=== PATIENT | female | born 1935 | race Caucasian/White ===

== ENCOUNTER → 2016-09-17 | Outpatient (CLI) | payer OTHER, MEDICAID | LOC: BHCLAF 01:44 | PROVIDERS: ATTEND Internal Medicine Cardiovascular Disease | DX: I50.9 Heart failure, unspecified (principal) | CPT/HCPCS: 93306-PO ==

== ENCOUNTER 2016-11-01 14:23 | Inpatient (IN) | payer OTHER, MEDICAID ==
--- NOTE | 2016-11-01 15:01 | EDPHY ---
H & P Stated Complaint: cough, fall saturday night, L shoulder, L hip pain, gen weak HPI/ROS: HPI CHIEF COMPLAINT: Generalized weakness, cough, shortness of breath, recurrent falls, left shoulder pain, left hip pain, possible UTI HISTORY OF PRESENT ILLNESS: This patient very pleasant 81-year-old female, significant past medical history for interstitial lung disease on 5 L nasal cannula 24 hours day, presents to the emergency room with generalized weakness. According to the son at bedside on Saturday night /Saturday morning patient took a fall and was off of her oxygen her family found her on the ground, she was confused most of Saturday however this cleared on Saturday she had a really good day however she has been having a significant cough and wheezing worsening shortness of breath worsening generalized weakness and from her fall on Saturday she has left shoulder pain and left hip pain. Son brings her into the emergency room by private vehicle for generalized weakness and concern out of worsening cough and shortness of breath. Patient denies fever, chest pain, vomiting, diarrhea. Main complaint is cough, wheezing, left shoulder pain left hip pain from fall. Past Medical History:Interstitial lung disease on 5 LNasal cannula, AFib, E coli sepsis, chronic hypoxic respiratory failure Past Surgical History: No recent surgical history Social History: Denies daily use of drugs alcohol tobacco products does have a tobacco history Family History: noncontributory ROS REVIEW OF SYSTEMS: A comprehensive 10 point review of systems is otherwise negative aside from elements mentioned in the history of present illness. Exam Constitutional triage nursing summary reviewed, vital signs reviewed, awake/ alert. Eyes normal conjunctivae and sclera, EOMI, PERRLA. HENT normal inspection, atraumatic, moist mucus membranes, no epistaxis, neck supple/ no meningismus, no raccoon eyes. Respiratory decreased breath sounds bilaterally, crackles at bases worse right than left, expiratory wheezing present. Cardiovascular rate normal, regular rhythm, no murmur, no edema, distal pulses normal. Gastrointestinal soft, non-tender, no rebound, no guarding, normal bowel sounds, no distension, no pulsatile mass. Genitourinary no CVA tenderness. Musculoskeletal Left shoulder atraumatic, left hip atraumatic, full range of motion of left shoulder and left leg. no midline vertebral tenderness, full range of motion, no calf swelling, no tenderness of extremities, no meningismus , good pulses, neurovascularly intact. Skin pink, warm, & dry, no rash, skin atraumatic. Neurologic awake, alert and oriented x 3, AAOx3, moves all 4 extremities equally, motor intact, sensory intact, CN II-XII intact, normal cerebellar, normal vision, normal speech. Psychiatric normal mood/affect. Heme/Lymph/Immune no lymphadenopathy. Differential Diagnosis: Includes but is not limited to in a particular order, pneumonia, bronchitis, CHF, electrolyte abnormality, UTI, dehydration, failure to thrive, generalized weakness Medical Decision Making: plan for this patient had IV established be gently hydrated normal saline, check a two view chest x-ray for pneumonia, EKG, troponin, electrolytes check urinalysis will give DuoNeb breathing treatment. Re-evaluation: 1714: re-examination at this time patient received a DuoNeb breathing treatment. Still has wheezing. Still complaining of generalized weakness. Patient requesting be admitted to the hospital for ongoing shortness of breath, generalized weakness, decreased appetite. She does tell me that she has been taking clindamycin. She feels that the clindamycin may be causing nausea upset stomach decrease appetite generalized weakness. ED x-ray left shoulder negative for acute traumatic injury ED x-ray left hip negative for acute traumatic injury ED x-ray chest x-ray two view interstitial lung disease present. No focal pneumonia. 1715: due the patient having ongoing generalized weakness, shortness of breath with wheezing being clinically dehydrated not getting out of bed and for recurrent fall risk she is requesting be admitted to the hospital. EKG interpretation by me on record in [facility] system. Impression time of EKG 15 50, this is atrially paced rhythm there is a PVC present. 1721: spoke with Dr. Russell the hospitalist service who agrees to admit this patient. Reason for admission generalized weakness, shortness of breath, interstitial lung disease, failure to thrive. Source: Patient - Personal History Tetanus Vaccine Date: < 10 years - Medical/Surgical History Hx Asthma: No Hx Chronic Respiratory Disease: Yes Hx Diabetes: Yes Hx Cardiac Disease: Yes Hx Renal Disease: No Hx Cirrhosis: No Hx Alcoholism: No Hx HIV/AIDS: No Hx Splenectomy or Spleen Trauma: No Other PMH: BACK FUSION, L SHOULDER SURGERY, PACEMAKER-Slow rate, HTN, INTERSITIAL LUNG DISEASE,ANEMIA, GI BLEED Ecoli infections, chronic back pain, recurrent UTIs - Social History Smoking Status: Former smoker Constitutional: Initial Vital Signs Temperature (C) 36.8 C 11/01/16 14:32 Heart Rate 71 11/01/16 14:32 Respiratory Rate 18 11/01/16 14:32 Blood Pressure 141/70 H 11/01/16 14:32 O2 Sat (%) 94 11/01/16 14:32 O2 Delivery Mode Nasal Cannula O2 (L/minute) 4 Allergies/Adverse Reactions: iodine [Iodine] Allergy (Severe, Verified 03/20/16 20:26) Other-Enter Comments Penicillins Allergy (Severe, Verified 03/20/16 20:26) Hives Home Medications: Medication Instructions Recorded Allopurinol [Allopurinol 300 MG 300 mg PO DAILY 03/08/14 (RX)] Carvedilol [Coreg (*)] 6.25 mg PO DAILY 03/08/14 Furosemide [Lasix 40 MG (*)] 80 mg PO DAILY 03/08/14 Gemfibrozil [Lopid 600 MG (*)] 600 mg PO BIDMEAL 03/08/14 Montelukast Sodium [Singulair 10 10 mg PO DAILY 03/08/14 mg (*)] traMADol [Ultram 50 mg (*)] 100 mg PO HS 03/08/14 Levothyroxine [Synthroid 25 mcg 25 mcg PO DAILY06 03/14/15 (*)] Potassium Cl [Klor-Con 20 meq (*)] 20 meq PO DAILY 03/14/15 Methenamine Katie [Hiprex 1 gm (*)] 1 gm PO BID #60 tab 03/20/15 Ascorbic Acid [Vitamin C 500 mg 500 mg PO DAILY 09/30/15 (*)] Diazepam [Valium 2 MG (*)] 2 mg PO HS PRN 09/30/15 Esomeprazole Magnesium 40 mg PO DAILY 09/30/15 Sertraline HCl [Zoloft 50mg (*)] 100 mg PO DAILY 09/30/15 oxyCODONE HCL/ACETAMINOPHEN 0.5 - 1 tab PO HS PRN 09/30/15 [Percocet 10-325 mg Tablet] Acetaminophen [Tylenol ES 500 mg 1,000 mg PO DAILY 03/21/16 (*)] Albuterol Hfa Anes Only [Proair 2 puffs IH DAILY PRN 03/21/16 Hfa Icu (*)] Cholecalciferol Vit D3 [Vitamin D3 1,000 units PO DAILY 03/21/16 (*)] Ferrous Sulfate [Ferrous Sulf 325 325 mg PO DAILY 03/21/16 MG (*)] Herbals/Supplements -Info Only 1 ea PO DAILY 03/21/16 Nintedanib Esylate [Ofev] 150 mg PO BID 03/21/16 guaiFENesin [Mucinex 600 MG (*)] 1,200 mg PO DAILY 03/21/16 levOFLOXACIN [Levaquin] 500 mg PO DAILY #7 tablet 03/23/16 Medical Decision Making - Data Points Laboratory Results: Laboratory Results 11/01/16 15:40 11/01/16 15:40 11/01/16 11/01/16 11/01/16 16:12 15:40 15:40 WBC RBC Hgb Hct MCV MCH MCHC RDW Plt Count MPV Neut % (Auto) Lymph % (Auto) Stone % (Auto) Eos % (Auto) Baso % (Auto) Nucleat RBC Rel Count Absolute Neuts (auto) Absolute Lymphs (auto) Absolute Monos (auto) Absolute Eos (auto) Absolute Basos (auto) Absolute Nucleated RBC Immature Gran % Immature Gran # PT 17.1 SEC H SEC (12.0-15.0) INR 1.40 H (0.83-1.16) APTT 40.5 SEC H SEC (23.0-38.0) Sodium 141 mEq/L mEq/L (134-144) Potassium 3.7 mEq/L mEq/L (3.5-5.2) Chloride 98 mEq/L mEq/L (97-110) Carbon Dioxide 30 mEq/l mEq/l (22-31) Anion Gap 13 mEq/L mEq/L (8-16) BUN 17 mg/dL mg/dL (7-23) Creatinine 0.8 mg/dL mg/dL (0.6-1.0) Estimated GFR > 60 Glucose 94 mg/dL mg/dL (70-100) Calcium 9.4 mg/dL mg/dL (8.5-10.4) Troponin I 0.012 ng/mL ng/mL (0-0.034) NT-Pro-B Natriuret Pep 1730 pg/mL H pg/mL (0-450) Influenza Typ A,B (DFA) NEGATIVE FOR FLU (NEGATIVE) 11/01/16 15:40 WBC 12.12 10^3/uL H 10^3/uL (3.80-9.50) RBC 3.64 10^6/uL L 10^6/uL (4.18-5.33) Hgb 11.2 g/dL L g/dL (12.6-16.3) Hct 34.9 % L % (38.0-47.0) MCV 95.9 fL fL (81.5-99.8) MCH 30.8 pg pg (27.9-34.1) MCHC 32.1 g/dL L g/dL (32.4-36.7) RDW 14.0 % % (11.5-15.2) Plt Count 303 10^3/uL 10^3/uL (150-400) MPV 10.0 fL fL (8.7-11.7) Neut % (Auto) 83.1 % H % (39.3-74.2) Lymph % (Auto) 8.4 % L % (15.0-45.0) Stone % (Auto) 6.8 % % (4.5-13.0) Eos % (Auto) 0.6 % % (0.6-7.6) Baso % (Auto) 0.4 % % (0.3-1.7) Nucleat RBC Rel Count 0.0 % % (0.0-0.2) Absolute Neuts (auto) 10.07 10^3/uL H 10^3/uL (1.70-6.50) Absolute Lymphs (auto) 1.02 10^3/uL 10^3/uL (1.00-3.00) Absolute Monos (auto) 0.82 10^3/uL H 10^3/uL (0.30-0.80) Absolute Eos (auto) 0.07 10^3/uL 10^3/uL (0.03-0.40) Absolute Basos (auto) 0.05 10^3/uL 10^3/uL (0.02-0.10) Absolute Nucleated RBC 0.00 10^3/uL 10^3/uL (0-0.01) Immature Gran % 0.7 % % (0.0-1.1) Immature Gran # 0.09 10^3/uL 10^3/uL (0.00-0.10) PT INR APTT Sodium Potassium Chloride Carbon Dioxide Anion Gap BUN Creatinine Estimated GFR Glucose Calcium Troponin I NT-Pro-B Natriuret Pep Influenza Typ A,B (DFA) Medications Given: Discontinued Medications Albuterol/Ipratropium (Duoneb) 3 ml IH EDNOW ONE Stop: 11/01/16 15:13 Last Admin: 11/01/16 15:30 Dose: 3 ml Sodium Chloride (Ns) 1,000 mls @ 0 mls/hr IV ONCE ONE PRN Reason: Wide Open Stop: 11/01/16 15:13 Last Admin: 11/01/16 16:18 Dose: 1,000 mls Departure - Departure Disposition: [facility] Inpatient Acute Clinical Impression: Generalized weakness, Shortness of breath Condition: Fair Referrals: Ronn Kahn MD [Primary Care Provider] - As per Instructions
[2016-11-01] MEDS ORDERED: NS 1,000 ML IV ONE (15:12)
[2016-11-01] MEDS ORDERED: IPRATROPIUM/ALBUTEROL 3 ML DEYVIAL IH ONE (15:12)
[2016-11-01 15:56] LABS: % IMMATURE GRANULYOCYTES 0.7 % (0.0-1.1); ABSOLUTE IMMATURE GRANULOCYTES 0.09 10^3/uL (0.00-0.10); ADD DIFF? NO; ADD MORPH? NO; ADD SCAN? NO; ATYPICAL LYMPHOCYTE FLAG 0 (0-99); FRAGMENT RBC FLAG 0 (0-99); HEMATOCRIT 34.9 % (38.0-47.0); HEMOGLOBIN 11.2 g/dL (12.6-16.3); LEFT SHIFT FLG 0 (0-99); LIPEMIA HEMOLYSIS FLAG 80 (0-99); MEAN CELL HEMOGLOBIN 30.8 pg (27.9-34.1); MEAN CELL HEMOGLOBIN CONCENTR. 32.1 g/dL (32.4-36.7); MEAN CELL VOLUME 95.9 fL (81.5-99.8); PLATELET CLUMPS FLAG 20 (0-99); PLATELET COUNT 303 10^3/uL (150-400); RED BLOOD CELL COUNT 3.64 10^6/uL (4.18-5.33)
--- NOTE | 2016-11-01 16:00 | CPEKG ---
Heart Rate: 78 RR Interval: 769 P-R Interval: 176 QRSD Interval: 76 QT Interval: 412 QTC Interval: 470 P Underwood: -33 QRS Underwood: -30 T Wave Underwood: 105 EKG Severity - ABNORMAL ECG - EKG Impression: ATRIAL-PACED COMPLEXES EKG Impression: PROBABLE INFERIOR INFARCT, OLD EKG Impression: ABNRM R PROG, CONSIDER ASMI OR LEAD PLACEMENT EKG Impression: LATERAL LEADS ARE ALSO INVOLVED Electronically Signed By: Roderick Ramírez 01-Nov-2016 21:17:30
[2016-11-01 16:09] LABS: ANION GAP 13 mEq/L (8-16); CALCIUM 9.4 mg/dL (8.5-10.4); CARBON DIOXIDE 30 mEq/l (22-31); CHLORIDE 98 mEq/L (97-110); CREATININE 0.8 mg/dL (0.6-1.0); GLOMERULAR FILTRATION RATE > 60; GLUCOSE 94 mg/dL (70-100); INR 1.4 (0.83-1.16); POTASSIUM 3.7 mEq/L (3.5-5.2); PROTIME(PATIENT) 17.1 SEC (12.0-15.0); SODIUM 141 mEq/L (134-144)
[2016-11-01 16:10] LABS: APTT 40.5 SEC (23.0-38.0)
[2016-11-01 16:21] LABS: TROPONIN I 0.012 ng/mL (0-0.034)
[2016-11-01] MEDS ORDERED: methylPREDNISolone SOD SUCC 125 MG/2 ML VIAL IVP ONE (17:14)
[2016-11-01 17:59] LABS: COLOR YELLOW; LEUKOCYTE ESTERASE,URINE NEGATIVE (NEGATIVE); NITRITE,URINE NEGATIVE (NEGATIVE)
[2016-11-01 18:01] LABS: BACTERIA TRACE /hpf (NONE SEEN)
[2016-11-01] MEDS ORDERED: ACETAMINOPHEN 500 MG TAB PO ONE (19:19)
[2016-11-01] MEDS ORDERED: FUROSEMIDE 20 MG/2 ML VIAL IVP ONE (23:57)
[2016-11-02] MEDS ORDERED: ALBUTEROL 3 ML DEYVIAL IH PRN (00:01)
[2016-11-02] MEDS: APIXABAN 2.5 MG TAB PO SCH ×3 (00:38→20:46)
[2016-11-02] MEDS: CARVEDILOL 6.25 MG TAB PO SCH ×2 (00:39→08:39)
[2016-11-02] MEDS: METHENAMINE HIPP 1 GM TAB PO SCH ×3 (00:41→20:48)
[2016-11-02] MEDS: Nintedanib Esylate [Ofev] 150 MG PO SCH ×2 (01:06→16:03)
--- NOTE | 2016-11-02 01:06 | GHP ---
DATE OF ADMISSION: 11/01/2016 CHIEF COMPLAINT: Weakness and falls. HISTORY OF PRESENT ILLNESS: The patient is an 81-year-old female with a history of interstitial lung disease and chronic hypoxemic respiratory failure who wears 5 L of oxygen by nasal cannula at baseline. Presents to the emergency department reporting generalized weakness and falls. She was apparently found on the ground by her son five days prior to admission at which time her oxygen was off. Since then, she has complained of ongoing weakness, nausea, vomiting and difficulty tolerating oral intake. She states she has not taken her medications for several days. She has recently been suffering from upper respiratory symptoms. Reports sinus congestion in addition to her chronic cough and wheezing. She states she has been falling more frequently at home due to weakness. She denies fevers or chills. In the emergency department , she received a dose of ceftriaxone along with a L of normal saline. She is admitted to the hospital for further management. PAST MEDICAL HISTORY: 1. Chronic hypoxemic respiratory failure, on 5 L oxygen at baseline. 2. Interstitial lung disease. 3. Atrial fibrillation. 4. Chronic anticoagulation on Eliquis. 5. Chronic back pain. 6. Iron-deficiency anemia. 7. Chronic weakness. 8. Recurrent falls. 9. History of ESBL E coli UTIs. PAST SURGICAL HISTORY: Shoulder replacement, cholecystectomy, hysterectomy, lumbar fusion. MEDICATIONS: Please see [facility] for complete updated outpatient medication list. ALLERGIES: Include iodine and penicillin. SOCIAL HISTORY: The patient lives with her daughter. She denies alcohol, tobacco, or drug use. FAMILY HISTORY: Both parents are . REVIEW OF SYSTEMS: A 10-point review of systems was performed and is negative except as per HPI. OBJECTIVE: VITAL SIGNS: Temperature is 36.4, blood pressure 151/106, heart rate 71, respiratory rate 18, she is 90% on 4 L of oxygen. GENERAL: The patient is awake, alert, and oriented. In no acute distress. HEENT: Head is atraumatic, normocephalic. Pupils equal, round, and reactive to light. Extraocular muscles intact. Oropharynx clear. Mucous membranes are moist. NECK: Supple. There is no JVD. HEART: Regular rate and rhythm. LUNGS: Reveal bibasilar crackles. Otherwise, fair air exchange with some scattered faint expiratory wheezes. ABDOMEN: Soft, obese, nondistended, nontender with normoactive bowel tones. EXTREMITIES: Without cyanosis, clubbing, or edema. NEUROLOGIC: Grossly nonfocal. ASSESSMENT AND PLAN: The patient is an 81-year-old female with a history of chronic respiratory failure, interstitial lung disease, who is admitted to the hospital with recurrent falls and generalized weakness. 1. Chronic hypoxemic respiratory failure secondary to interstitial lung disease. She is currently on her baseline oxygen requirement. Will give her scheduled DuoNeb and p.r.n. albuterol nebs. I do not see a strong indication for steroids at this time. She does have bibasilar crackles and elevated BNP. Has not taken her Lasix in several days. I will give her some IV Lasix tonight will resume her oral Lasix tomorrow. Her chest x-ray does not show overt failure. 2. Recurrent falls associated with generalized weakness. This has been an ongoing problem for the patient, and she may ultimately require a higher level of care. I do not see an obvious source of infection contributing to these symptoms. Her urinalysis is relatively bland. There is no evidence of pneumonia on her chest x-ray. She has no focal abdominal tenderness. No signs of CLINICAL LABORATORY MANAGER infection. Her white count is slightly elevated, and she did receive IV ceftriaxone in the emergency department. Blood cultures and urine cultures are pending. She will need PT/OT evaluations to further determine her functional capacity, and consideration might be given to placement. 3. Atrial fibrillation. She is rate controlled on Coreg. Will continue this. Will also continue her Eliquis for stroke prevention. 4. Nausea and vomiting. She apparently denied this to the ER physician per his documentation and she just ate a bowl of ice cream prior to my arrival. However, she does report to me nausea and vomiting and difficulty tolerating p.o. She does not appear significantly volume depleted and has no electrolyte abnormalities. I will give her a PPI and continue monitoring. If these symptoms persist, could consider GI consult. 5. Chronic pain. I will continue her p.r.n. tramadol and oxycodone. These medications certainly could contribute to falls, though, according to her med rec, she takes just 1 oxycodone at bedtime as well as tramadol 100 mg at bedtime. I will reduce this dose to 50 mg to try to minimize potential side affects. DISPOSITION: Patient is admitted to inpatient status. She may require greater than 48 hours hospitalization for acute therapy and further management of her chronic respiratory failure and generalized weakness and falls. /[id number]/MODL MTDD
[2016-11-02] MEDS: OXYCODONE/APAP 5/325 TAB PO PRN ×3 (04:03→19:35)
[2016-11-02] MEDS: LEVOTHYROXINE 25 MCG TAB PO SCH (05:02)
[2016-11-02] MEDS: IPRATROPIUM/ALBUTEROL 3 ML DEYVIAL IH SCH ×4 (06:17→21:17)
[2016-11-02] MEDS: ALLOPURINOL 300 MG TAB PO SCH (08:35)
[2016-11-02] MEDS: GEMFIBROZIL 600 MG TAB PO SCH ×2 (08:35→19:35)
[2016-11-02] MEDS: FERROUS SULFATE 325 MG TAB PO SCH (08:35)
[2016-11-02] MEDS: POTASSIUM CL 20 MEQ TAB PO SCH (08:36)
[2016-11-02] MEDS: PANTOPRAZOLE SODIUM 40 MG TAB PO SCH (08:36)
[2016-11-02] MEDS: SERTRALINE HCL 100 MG TAB PO SCH (08:37)
[2016-11-02] MEDS: FUROSEMIDE 40 MG TAB PO SCH (08:39)
--- NOTE | 2016-11-02 15:48 | HOSPPROG ---
Hospitalist Progress Note Assessment/Plan: 81-year-old female presents emergency room complaints of weakness and falls. This is my 1st encounter with the patient, chart reviewed. Patient discussed with Dr. Nieto of Infectious Disease # weakness Etiology unclear Continue evaluation # nausea with decreased appetite Etiology unclear in Continue hydration Encourage oral intake # dehydration Continue IV fluids # chronic hypoxemic respiratory failure note On 5 L at baseline At baseline # # atrial fibrillation Appears rate controlled # chronic pain Continue home medications # questionable urinary tract infection Reviewed with Dr. Nieto infectious disease Patient requesting consultation Defer a any further antibiotic therapy to Dr. Nieto Urine culture pending # disposition Unclear given further need for evaluation hospital setting Reviewed with patient and the daughter Agree with this plan Continue supportive management and investigation into etiology of new complaint Subjective: Complains of having a headache. Feels tired and weak all over. Feels some pain generally all over. Decreased appetite. Objective: Vital Signs Temp Pulse Resp BP Pulse Ox 36.8 C 76 16 130/70 H 98 11/02/16 15:19 11/02/16 15:19 11/02/16 15:19 11/02/16 15:19 11/02/16 15:19 11/01/16 11/02/16 11/03/16 05:59 05:59 05:59 Intake Total 350 100 Output Total 800 Balance -450 100 PT 17.1 SEC (12.0-15.0) H 11/01/16 15:40 INR 1.40 (0.83-1.16) H 11/01/16 15:40 - Physical Exam Constitutional: appears nourished, chronically ill appearing, uncomfortable Eyes: PERRL, anicteric sclera, EOMI Ears, Nose, Mouth, Throat: moist mucous membranes, hearing normal, ears appear normal Cardiovascular: No JVD, No tachycardia, No edema Respiratory: no respiratory distress, no rales or rhonchi, reduced air movement Gastrointestinal: No tenderness, No ascites, No guarding Skin: warm, normal color, No erythema Musculoskeletal: no joint effusions, muscular tenderness, generalized weakness Neurologic: AAOx3 Psychiatric: not anxious, not encephalopathic, thought process linear ICD10 Worksheet Patient Problems: Problems Problem Status Onset GI hemorrhage Acute Urinary tract infection Acute Weakness Acute Generalized weakness Acute Shortness of breath Acute
--- NOTE | 2016-11-02 17:03 | PCMIDPN ---
Assessment/Plan: Assessment: Abnormal urinalysis-no clear indicator of urinary tract infection. No localizing symptoms. Would not treat for urinary source of infection. Plan: 1. No antibiotics. We will sign off. If you need follow-up please call again. Subjective: Patient is resting in her hospital bed. She is at baseline as far as cognition in behavior. Energy level also appears at baseline. No fevers or chills. Objective: No antibiotics Vital Signs Temp Pulse Resp BP Pulse Ox 36.8 C 76 16 130/70 H 98 11/02/16 15:19 11/02/16 15:19 11/02/16 15:19 11/02/16 15:19 11/02/16 15:19 11/01/16 11/02/16 11/03/16 05:59 05:59 05:59 Intake Total 350 100 Output Total 800 Balance -450 100 - Physical Exam General Appearance: WD/WN, alert, no apparent distress, non-toxic Skin: normal color, warm/dry, No rash Neuro/Psych: alert, normal mood/affect, oriented x 3 ICD10 Worksheet Patient Problems: Problems Problem Status Onset Generalized weakness Acute Shortness of breath Acute GI hemorrhage Acute Urinary tract infection Acute Weakness Acute
[2016-11-02] MEDS: traMADol 50 MG TAB PO SCH (20:47)
[2016-11-02] MEDS: MELATONIN 3 MG TAB PO SCH (20:48)
[2016-11-02] MEDS: NINTEDANIB ESYLATE 100 MG PO SCH (20:48)
[2016-11-02] MEDS ORDERED: traMADol 50 MG TAB PO SCH (21:00)
[2016-11-02] MEDS ORDERED: OXYCODONE/APAP 5/325 TAB PO SCH (21:00)
[2016-11-02] MEDS: BENZONATATE 100 MG CAP PO PRN (22:32)
[2016-11-02] MEDS: DOXYCYCLINE HYCLATE 100 MG CAP/TAB PO SCH (22:33)
[2016-11-03] MEDS: IPRATROPIUM/ALBUTEROL 3 ML DEYVIAL IH SCH ×4 (06:14→21:22)
[2016-11-03] MEDS: LEVOTHYROXINE 25 MCG TAB PO SCH (06:25)
[2016-11-03] MEDS: ACETAMINOPHEN 325 MG TAB PO PRN (07:03)
[2016-11-03] MEDS: SERTRALINE HCL 100 MG TAB PO SCH (08:17)
[2016-11-03] MEDS: APIXABAN 2.5 MG TAB PO SCH ×2 (08:17→21:23)
[2016-11-03] MEDS: ALLOPURINOL 300 MG TAB PO SCH (08:17)
[2016-11-03] MEDS: PANTOPRAZOLE SODIUM 40 MG TAB PO SCH (08:17)
[2016-11-03] MEDS: POTASSIUM CL 20 MEQ TAB PO SCH (08:17)
[2016-11-03] MEDS: FERROUS SULFATE 325 MG TAB PO SCH (08:18)
[2016-11-03] MEDS: CARVEDILOL 6.25 MG TAB PO SCH (08:18)
[2016-11-03] MEDS: FUROSEMIDE 40 MG TAB PO SCH (08:18)
[2016-11-03] MEDS: DOXYCYCLINE HYCLATE 100 MG CAP/TAB PO SCH ×2 (08:18→21:22)
[2016-11-03] MEDS: NINTEDANIB ESYLATE 100 MG PO SCH ×2 (08:20→21:25)
[2016-11-03] MEDS: METHENAMINE HIPP 1 GM TAB PO SCH ×2 (08:20→21:23)
[2016-11-03] MEDS: GEMFIBROZIL 600 MG TAB PO SCH ×2 (08:35→17:33)
--- NOTE | 2016-11-03 08:40 | HOSPPROG ---
Hospitalist Progress Note Assessment/Plan: Patient is an 81-year-old female with history of interstitial lung disease and chronic hypoxemic respiratory failure. She presented to the emergency room with generalized weakness and falls. Today is my 1st encounter with the patient. Chart reviewed. # weakness -PT recommending 24 hour care/ SNF? # Pyuria - likely is chronic colonization - appreciate Dr. Nieto involvement # nausea with decreased appetite no complaints fo this today # dehydration dc fluids #elevated BNP -patient on lasix 8o mg daily -will check an echo/ # chronic hypoxemic respiratory failure note/ ild I suspect this is impacting her health overall On 5 L at baseline is seen at [facility] # atrial fibrillation - anticoagulated on Eliquis # chronic pain Continue home medications # disposition: pending/ will likely go home in the a.m./ will first evaluate echo/ she is cared by her family/ recommended consideration of SNF for strengthening Subjective: Chikis describes as feeling full over abomen and chest wall area/ no chest pain. Objective: Vital Signs Temp Pulse Resp BP Pulse Ox 36.4 C 73 18 123/71 H 96 11/03/16 07:22 11/03/16 08:18 11/03/16 07:22 11/03/16 08:18 11/03/16 07:22 11/02/16 11/03/16 11/04/16 05:59 05:59 05:59 Intake Total 350 500 Output Total 800 350 Balance -450 150 PT 17.1 SEC (12.0-15.0) H 11/01/16 15:40 INR 1.40 (0.83-1.16) H 11/01/16 15:40 - Physical Exam Constitutional: not in pain, chronically ill appearing, obese Eyes: PERRL Ears, Nose, Mouth, Throat: hearing normal Cardiovascular: regular rate and rhythym Respiratory: no respiratory distress, other (crackles bibasilar) Gastrointestinal: other (large and round) Skin: warm Musculoskeletal: generalized weakness Neurologic: AAOx3 Psychiatric: interacting appropriately ICD10 Worksheet Patient Problems: Problems Problem Status Onset Generalized weakness Acute Shortness of breath Acute GI hemorrhage Acute Urinary tract infection Acute Weakness Acute
[2016-11-03] MEDS: OXYCODONE/APAP 5/325 TAB PO PRN (21:21)
[2016-11-03] MEDS: MELATONIN 3 MG TAB PO SCH (21:22)
[2016-11-03] MEDS: traMADol 50 MG TAB PO SCH (21:22)
[2016-11-03] MEDS: BENZONATATE 100 MG CAP PO PRN (21:22)
[2016-11-03] MEDS: DIAZEPAM 2 MG TAB PO PRN (21:23)
[2016-11-04] MEDS: LEVOTHYROXINE 25 MCG TAB PO SCH (06:03)
[2016-11-04] MEDS: ACETAMINOPHEN 325 MG TAB PO PRN ×2 (06:03→23:20)
[2016-11-04] MEDS: IPRATROPIUM/ALBUTEROL 3 ML DEYVIAL IH SCH ×4 (06:17→23:44)
[2016-11-04] MEDS: POTASSIUM CL 20 MEQ TAB PO SCH (09:27)
[2016-11-04] MEDS: METHENAMINE HIPP 1 GM TAB PO SCH ×2 (09:27→20:00)
[2016-11-04] MEDS: APIXABAN 2.5 MG TAB PO SCH ×2 (09:27→20:01)
[2016-11-04] MEDS: ALLOPURINOL 300 MG TAB PO SCH (09:27)
[2016-11-04] MEDS: GEMFIBROZIL 600 MG TAB PO SCH ×2 (09:27→18:36)
[2016-11-04] MEDS: PANTOPRAZOLE SODIUM 40 MG TAB PO SCH (09:28)
[2016-11-04] MEDS: DOXYCYCLINE HYCLATE 100 MG CAP/TAB PO SCH ×2 (09:28→20:01)
[2016-11-04] MEDS: SERTRALINE HCL 100 MG TAB PO SCH (09:28)
[2016-11-04] MEDS: FUROSEMIDE 40 MG TAB PO SCH (09:28)
[2016-11-04] MEDS: CARVEDILOL 6.25 MG TAB PO SCH (09:28)
[2016-11-04] MEDS: FERROUS SULFATE 325 MG TAB PO SCH (09:28)
[2016-11-04] MEDS: NINTEDANIB ESYLATE 100 MG PO SCH ×2 (09:29→20:01)
--- NOTE | 2016-11-04 12:16 | HOSPPROG ---
Hospitalist Progress Note Assessment/Plan: Patient is an 81-year-old female with history of interstitial lung disease and chronic hypoxemic respiratory failure. She presented to the emergency room with generalized weakness and falls. # weakness -PT recommending 24 hour care/ SNF? # Pyuria - likely is chronic colonization - appreciate Dr. Nieto involvement # nausea with decreased appetite -eating better # dehydration dc fluids #elevated BNP -patient on lasix 8o mg daily -will check an echo/pending # chronic hypoxemic respiratory failure note/ ild I suspect this is impacting her health overall On 4 L at baseline is seen at [facility] # atrial fibrillation - anticoagulated on Eliquis # chronic pain Continue home medications # disposition: pending/awaiting echo/check cbc in a.m. Subjective: Chikis is tired but feeling better today/ slept well, appetite is improving. Objective: Vital Signs Temp Pulse Resp BP Pulse Ox 36.4 C 72 16 137/69 H 93 11/04/16 08:00 11/04/16 11:13 11/04/16 11:13 11/04/16 09:28 11/04/16 11:13 Microbiology 11/01/16 18:02 Urine Culture - Final Urine,Clean Catch Two [place] Types Gram Negative Karl 11/03/16 11/04/16 11/05/16 05:59 05:59 05:59 Intake Total 500 200 Output Total 350 500 Balance 150 -300 PT 17.1 SEC (12.0-15.0) H 11/01/16 15:40 INR 1.40 (0.83-1.16) H 11/01/16 15:40 - Physical Exam Constitutional: not in pain, chronically ill appearing, obese Eyes: PERRL Ears, Nose, Mouth, Throat: hearing normal Cardiovascular: regular rate and rhythym Respiratory: no respiratory distress, other (rhonchi, rubbing type lung sounds) Skin: warm, normal color Musculoskeletal: full muscle strength, generalized weakness Neurologic: AAOx3 Psychiatric: interacting appropriately, not anxious ICD10 Worksheet Patient Problems: Problems Problem Status Onset Generalized weakness Acute Shortness of breath Acute GI hemorrhage Acute Urinary tract infection Acute Weakness Acute
[2016-11-04] MEDS: MELATONIN 3 MG TAB PO SCH (20:00)
[2016-11-04] MEDS: traMADol 50 MG TAB PO SCH (20:00)
[2016-11-04] MEDS: DIAZEPAM 2 MG TAB PO PRN (20:01)
[2016-11-05] MEDS: BENZONATATE 100 MG CAP PO PRN ×2 (05:32→13:23)
[2016-11-05] MEDS: LEVOTHYROXINE 25 MCG TAB PO SCH (05:32)
[2016-11-05] MEDS: IPRATROPIUM/ALBUTEROL 3 ML DEYVIAL IH SCH ×3 (05:34→16:25)
[2016-11-05 05:51] LABS: % IMMATURE GRANULYOCYTES 2.3 % (0.0-1.1); ABSOLUTE IMMATURE GRANULOCYTES 0.19 10^3/uL (0.00-0.10); ADD DIFF? NO; ADD MORPH? NO; ADD SCAN? NO; ATYPICAL LYMPHOCYTE FLAG 10 (0-99); FRAGMENT RBC FLAG 0 (0-99); HEMATOCRIT 32.1 % (38.0-47.0); HEMOGLOBIN 10.3 g/dL (12.6-16.3); LEFT SHIFT FLG 10 (0-99); LIPEMIA HEMOLYSIS FLAG 80 (0-99); MEAN CELL HEMOGLOBIN 30.4 pg (27.9-34.1); MEAN CELL HEMOGLOBIN CONCENTR. 32.1 g/dL (32.4-36.7); MEAN CELL VOLUME 94.7 fL (81.5-99.8); MEAN PLATELET VOLUME 10.5 fL (8.7-11.7); PLATELET CLUMPS FLAG 0 (0-99); PLATELET COUNT 290 10^3/uL (150-400); RED BLOOD CELL COUNT 3.39 10^6/uL (4.18-5.33); RED CELL DISTRIBUTION WIDTH 14.2 % (11.5-15.2)
[2016-11-05 08:26] VITALS: TEMP 98.2; O2SAT 92
[2016-11-05] MEDS: ACETAMINOPHEN 325 MG TAB PO PRN ×2 (09:31→13:26)
[2016-11-05] MEDS: CARVEDILOL 6.25 MG TAB PO SCH (09:31)
[2016-11-05] MEDS: ALLOPURINOL 300 MG TAB PO SCH (09:32)
[2016-11-05] MEDS: APIXABAN 2.5 MG TAB PO SCH (09:32)
[2016-11-05] MEDS: FUROSEMIDE 40 MG TAB PO SCH (09:32)
[2016-11-05] MEDS: GEMFIBROZIL 600 MG TAB PO SCH (09:32)
[2016-11-05] MEDS: FERROUS SULFATE 325 MG TAB PO SCH (09:32)
[2016-11-05] MEDS: METHENAMINE HIPP 1 GM TAB PO SCH (09:32)
[2016-11-05] MEDS: DOXYCYCLINE HYCLATE 100 MG CAP/TAB PO SCH (09:32)
[2016-11-05] MEDS: PANTOPRAZOLE SODIUM 40 MG TAB PO SCH (09:39)
[2016-11-05] MEDS: POTASSIUM CL 20 MEQ TAB PO SCH (09:39)
[2016-11-05] MEDS: SERTRALINE HCL 100 MG TAB PO SCH (09:39)
[2016-11-05] MEDS: NINTEDANIB ESYLATE 100 MG PO SCH (09:40)
--- NOTE | 2016-11-05 11:32 | ECHO ---
[id number] + + [address] : : [place] [address] : : [phone] + + Adult Echocardiographic Report + -----+ :Name: ANGELO NICOLE SStudy Date: 11/04/2016 03:31 PM : : Hospital Admission Number: [id number] Location : 354: :: 1935 Gender: Female Height: 61 in : :Age: 81 yrs Race: WH Weight: 180 lb : :Reason For Study: elevated BNP, increase SOB : : BSA: 1.8 meters2 : :History: No previous : + -----+ MMode/2D Measurements \T\ Calculations IVSd: 1.1 cm RVDd: 3.5 cm FS: 28.6 % LVOT diam: 1.7 cm LVPWd: 1.4 cm LVIDd: 4.2 cm EDV(Teich): LVOT area: LVIDs: 3.0 cm 78.1 ml 2.3 cm2 ESV(Teich): 34.8 ml EF(Teich): 55.4 % LVLd ap4: 7.2 cm SV(MOD-sp4): EDV(MOD-sp4): 36.0 ml 59.0 ml LVLs ap4: 5.9 cm ESV(MOD-sp4): 23.0 ml EF(MOD-sp4): 61.0 % Normal Measurement Values: + + :LVIDd (3.5-5.7cm) IVSd (0.6-1.1cm) LVPWd (0.6-1.1cm) Aortic Root (2.0-3.7cm)Left Atrium (1.5-4.0cm): :LV Vol(d) (76-115ml) LV Vol(s) (29-48ml) Ejec Fraction (50-65%)PV [place] (0.6- 1.2m/s) TV [place] (0.4-1.0m/s) : :MV E [place] (0.8-1.0m/s)MV A [place] (0.3-1.0m/s)LVOT [place] (0.7-1.2m/s) Asc Ao [place] ( 0.9-1.8m/s) : + + Doppler Measurements \T\ Calculations MV E max [place]: MV V2 max: Ao mean PG: LV V1 mean P.8 cm/sec 91.2 cm/sec 4.5 mmHg 0.94 mmHg MV A max day[place]: MV max PG: Ao V2 mean: LV V1 mean: 94.3 cm/sec 3.3 mmHg 101.3 cm/sec 45.9 cm/sec MV E/A: 0.59 MV V2 mean: Ao V2 VTI: 25.7 cm LV V1 VTI: 12.6 cm MV dec time: 54.7 cm/sec LIZ(I,D): 1.1 cm2 0.20 sec MV mean P.4 mmHg MV V2 VTI: 17.1 cm MVA(VTI): 1.7 cm2 SV(LVOT): 28.4 ml PA V2 max: TR max [place]: 89.6 cm/sec 311.3 cm/sec PA max PG: TR max P.2 mmHg 38.8 mmHg RAP systole: 10.0 mmHg RVSP(TR): 48.8 mmHg Left Ventricle The left ventricle is normal in size and function. There is normal left ventricular wall thickness. Ejection Fraction = 55-60%. There is Doppler evidence for diastolic dysfunction. Regional wall motion abnormalities cannot be excluded due to limited visualization. Right Ventricle The right ventricle is normal size. There is a pacemaker lead in the right ventricle. The right ventricular systolic function is normal. Atria The left atrium is mildly dilated. Right atrial size is normal. The interatrial septum is intact with no evidence for an atrial septal defect. Mitral Valve The mitral valve is normal in structure and function. There is no mitral valve stenosis. There is trace to mild mitral regurgitation. Tricuspid Valve The tricuspid valve is normal in structure and function. There is no tricuspid stenosis. There is moderate tricuspid regurgitation. Right ventricular systolic pressure is 48.0mmHg. There is Doppler evidence for moderate pulmonary hypertension. Aortic Valve Mild Aortic Valve Calcification. There is no aortic stenosis. There is no aortic insufficiency. Pulmonic Valve The pulmonic valve is not well visualized. There is no pulmonic valvular stenosis. Trace pulmonic valvular regurgitation. Great Vessels The aortic root is normal size. Pericardium/Pleural There is a fat pad seen. Conclusion A complete two-dimensional transthoracic echocardiogram was performed (2D, M-mode, Doppler and color flow Doppler). The study was technically difficult. The left ventricle is normal in size and function. Ejection Fraction = 55-60%. There is Doppler evidence for diastolic dysfunction. There are no regional wall motion abnormalities. There is a pacemaker lead in the right ventricle. There is trace to mild mitral regurgitation. There is moderate tricuspid regurgitation. Right ventricular systolic pressure is 48.0mmHg. Mild Aortic Valve Calcification Trace pulmonic valvular regurgitation. The left atrium is mildly dilated. There is Doppler evidence for moderate pulmonary hypertension. Final Reading Physician: Roberta Reyes signed on 11/05/2016 11:31 AM Ordering Physician: Betsey Faust Performed By: Claudette Palafox
[2016-11-05 15:13] VITALS: BP 122/72; PULSE 79; RESP 17
--- NOTE | 2016-11-05 15:20 | HOSPPROG ---
Hospitalist Progress Note Assessment/Plan: Patient is an 81-year-old female with history of interstitial lung disease and chronic hypoxemic respiratory failure. She presented to the emergency room with generalized weakness and falls. # weakness -PT recommending 24 hour care/ -patient prefers to go home -she has elevated right systolic bp as well as moderate pulm htn -has cpap at home/ hasn't been using this/ recommended resuming this which may help her with more energy during the daty # Pyuria - likely is chronic colonization - appreciate Dr. Nieto involvement -was started on doxy/ patient would like several more days of treatment # nausea with decreased appetite -eating better # dehydration dc fluids #elevated BNP -patient on lasix 8o mg daily -[facility] to [facility] Linda Roche this week if possible # chronic hypoxemic respiratory failure note/ ild I suspect this is impacting her health overall On 4 L at baseline is seen at [facility]/she needs further evaluation of her moderate pulm htn copy of echo report given to patient and her daughter # atrial fibrillation - anticoagulated on Eliquis # chronic pain Continue home medications # disposition: dc home Subjective: Chikis is c/o sinus congestion and still is tired and weak, but somewhat overall better. Objective: Vital Signs Temp Pulse Resp BP Pulse Ox 36.8 C 79 17 122/72 H 92 11/05/16 08:25 11/05/16 15:11 11/05/16 15:11 11/05/16 15:11 11/05/16 15:11 Laboratory Results 11/05/16 05:23 11/04/16 11/05/16 11/06/16 05:59 05:59 05:59 Intake Total 200 300 Output Total 500 1250 Balance -300 -950 PT 17.1 SEC (12.0-15.0) H 11/01/16 15:40 INR 1.40 (0.83-1.16) H 11/01/16 15:40 - Physical Exam Constitutional: chronically ill appearing, obese Eyes: PERRL Ears, Nose, Mouth, Throat: hearing normal Cardiovascular: regular rate and rhythym Respiratory: no respiratory distress, rhonchi (few scattered bibasilar) Gastrointestinal: normoactive bowel sounds, other (large and round) Skin: warm Musculoskeletal: generalized weakness Neurologic: AAOx3 Psychiatric: interacting appropriately, not anxious ICD10 Worksheet Patient Problems: Problems Problem Status Onset Generalized weakness Acute Shortness of breath Acute GI hemorrhage Acute Urinary tract infection Acute Weakness Acute
--- NOTE | 2016-11-05 15:28 | PDIAF ---
- Diagnosis Diagnosis: weakness, ILD, moderate pulmonary hypertension - Medication Management Discharge Medications: Medications to Continue on Transfer Allopurinol [Allopurinol 300 MG (RX)] 300 mg PO DAILY 03/08/14 [Last Taken 2 Days Ago] Carvedilol [Coreg (*)] 6.25 mg PO DAILY 03/08/14 [Last Taken 2 Days Ago] Furosemide [Lasix 40 MG (*)] 80 mg PO DAILY 03/08/14 [Last Taken 2 Days Ago] Gemfibrozil [Lopid 600 MG (*)] 600 mg PO BIDMEAL 03/08/14 [Last Taken 2 Days Ago ] traMADol [Ultram 50 mg (*)] 100 mg PO HS 03/08/14 [Last Taken 2 Days Ago] Levothyroxine [Synthroid 25 mcg (*)] 25 mcg PO DAILY06 03/14/15 [Last Taken 2 Days Ago] Potassium Cl [Klor-Con 20 meq (*)] 20 meq PO DAILY 03/14/15 [Last Taken 2 Days Ago] Methenamine Katie [Hiprex 1 gm (*)] 1 gm PO BID #60 tab 03/20/15 [Last Taken 2 Days Ago] Ascorbic Acid [Vitamin C 500 mg (*)] 500 mg PO DAILY 09/30/15 [Last Taken 2 Days Ago] Diazepam [Valium 2 MG (*)] 2 mg PO HS PRN 09/30/15 [Last Taken 2 Days Ago] Esomeprazole Magnesium 40 mg PO DAILY 09/30/15 [Last Taken 2 Days Ago] Sertraline HCl [Zoloft 50mg (*)] 100 mg PO DAILY 09/30/15 [Last Taken 2 Days Ago ] Acetaminophen [Tylenol ES 500 mg (*)] 1,000 mg PO HS 03/21/16 [Last Taken 2 Days Ago] Cholecalciferol Vit D3 [Vitamin D3 (*)] 2,500 units PO DAILY 03/21/16 [Last Taken 2 Days Ago] Ferrous Sulfate [Ferrous Sulf 325 MG (*)] 325 mg PO DAILY 03/21/16 [Last Taken 2 Days Ago] Herbals/Supplements -Info Only 1 ea PO DAILY 03/21/16 [Last Taken Unknown] Albuterol [Proventil Inhaler HFA (*)] 1 - 2 puffs IH DAILY PRN 11/01/16 [Last Taken Unknown] Apixaban [Eliquis] 2.5 mg PO BID 11/01/16 [Last Taken 2 Days Ago] C/E/Zn/Cu/OM3/DHA/EPA/LUT/ZEAX [Preservision Areds 2 Softgel] 2 each PO DAILY [Last Taken 2 Days Ago] Melatonin [Melatonin 3 MG (*)] 3 mg PO HS 11/01/16 [Last Taken 2 Days Ago] oxyCODONE/APAP 5/325 [Percocet 5/325 (*)] 1 tab PO HS 11/01/16 [Last Taken 2 Days Ago] Nintedanib Esylate [Ofev] 100 mg PO BID 11/02/16 [Last Taken 10/30/16] Doxycycline Hyclate [Vibramycin 100 MG (*)] 100 mg PO BID #7 capsule 11/05/16 [ Last Taken Unknown] Discharge Medications: Refer to the Discharge Home Medication list for PRN reason. - Orders Services needed: Home Care, Physical Therapy, Occupational Therapy Home Care Face to Face: I certify that this patient was under my care and that I had the required [id number] encounter meeting the encounter requirements on the discharge day. My findings support the fact that the patient is homebound as defined in CMS Chapter 7 Medicare Benefits Manual 30.1.1, The condition of the patient is such that there exists a normal inability to leave home and consequently, leaving home would require a considerable and taxing effort. Diet Recommendation: no restrictions on diet Diet Texture: Regular Texture Diet Additional: see [facility] doctor sooner than later, you have elevated pressures on right side of your heart/ moderate pulmonary htn - Follow Up Care Current Providers and Referrals: Ronn Kahn MD [Primary Care Provider] - As per Instructions Dena Booth MD [Medical Doctor] - Linda Roche PA [Physician Counter Molder] -
--- NOTE | 2016-11-05 20:23 | GDS ---
DISCHARGE DIAGNOSES: 1. Generalized weakness. 2. Pyuria. 3. Nausea with decreased appetite. 4. Dehydration. 5. Elevated BNP. 6. Chronic hypoxemic respiratory failure secondary to interstitial lung disease. 7. Atrial fibrillation. 8. Chronic pain. BRIEF HISTORY: The patient is an 81-year-old female with a history of interstitial lung disease and chronic hypoxemic respiratory failure, who wears 5 L of oxygen by nasal cannula at baseline. She presented to the emergency room with general weakness and falls. She was found on the ground by her son 5 days prior to admission, at which time her oxygen was off. She was then complaining of weakness, nausea and vomiting. She was admitted for further care. In the emergency room, she had a hip x-ray performed which showed nothing acute. A shoulder x-ray was performed which showed postsurgical changes for a reverse left total shoulder arthroplasty with capsular calcification or ossification. No evidence of an acute fracture. Throughout her stay, she slowly improved. An echocardiogram was performed because she has a history of diastolic heart failure. This showed and EF of 55% to 60%. She has Doppler evidence for diastolic dysfunction without any regional wall abnormalities. Her right ventricular systolic pressure is elevated at 48 mmHg. She also has moderate pulmonary hypertension. Normally she wears CPAP at home. HOSPITAL COURSE: 1. Weakness. Physical Therapy is recommending a senior living facility versus 24-hour home care. She wants to go home. Her daughter is very supportive of her. I suspect that her pulmonary hypertension is impacting her health. I recommended that they follow up with [facility] and Cardiology. 2. Pyuria. This is likely chronic colonization. The patient would like to stay on doxycycline for several more days. I told her she did not have an infection. 3. Nausea, decreased appetite. She is eating well. 4. Dehydration, resolved. She has been drinking. 5. Elevated BNP. Her echo notes diastolic dysfunction. She is euvolemic on discharge. Recommend that she go to [facility] this week and follow up with Linda Roche, physician nursing home assistant administrator. 6. Chronic hypoxemic respiratory failure. This is secondary to interstitial lung disease. She also has moderate pulmonary hypertension that needs to be further evaluated by [facility]. 7. Atrial fibrillation. Anticoagulated on Eliquis. 8. Chronic pain. Home medications have been resumed. CONDITION AT DISCHARGE: Stable. Blood pressure is 122/72, heart rate 79, respiratory rate is 17, O2 saturation on 4 L is 97%, temperature is 36.8 Celsius. MEDICATIONS AT DISCHARGE: Please see the EMR. DISCHARGE INSTRUCTIONS: 1. Recommending that she follow up with [facility] sooner than later. 2. Further followup with [facility]. 3. Recommendation for CPAP. This may give her more energy. 4. Return to the ER if she develops chest pain, worsening shortness of breath, fever, chills. Greater than 30 minutes discharging and coordinating care. /[id number]/MODL MTDD
== END 2016-11-05 17:06 | disposition home health service (06) | DRG 948 ==
LOC: F3N 19:58
PROVIDERS: ADMIT Hospitalist; ATTEND Hospitalist
DX: R53.1 Weakness (principal); N39.0 Urinary tract infection, site not specified; J96.11 Chronic respiratory failure with hypoxia; J84.9 Interstitial pulmonary disease, unspecified; I27.2 Other secondary pulmonary hypertension; E86.0 Dehydration; I48.91 Unspecified atrial fibrillation; D50.9 Iron deficiency anemia, unspecified; G89.29 Other chronic pain; R29.6 Repeated falls; Z95.5 Presence of coronary angioplasty implant and graft; Z87.891 Personal history of nicotine dependence; Z88.0 Allergy status to penicillin; Z79.01 Long term (current) use of anticoagulants; Z96.612 Presence of left artificial shoulder joint
CPT/HCPCS: 96365; 97110-GP; 97116-GP; 97161-GP; 97165-GO; 97530-GP; 97535-GO; G8978-GP-CK; G8979-GP-CJ; G8987-GO-CI; G8988-GO-CI; J0696

== ENCOUNTER → 2017-08-02 | Outpatient (CLI) | payer OTHER, MEDICAID | LOC: CIMAGING 15:14 | PROVIDERS: ATTEND Family Medicine | DX: J84.10 Pulmonary fibrosis, unspecified (principal); I51.7 Cardiomegaly; R50.9 Fever, unspecified; R05 Cough | CPT/HCPCS: 71020-PO ==